=== PATIENT | male | born 1940 | race Caucasian/White ===

== ENCOUNTER 2020-03-19 14:45 | Outpatient (RCR) | payer MEDICARE, OTHER ==
[2019-01-20 15:09] VITALS: BP 129/73
[~2020-03-19 14:45] MED LIST: ASPIRIN E.C. 8181 MG; CALCITRIOL PO; CARDURA2 MG PO; CARVEDILOL12.5 MG PO; CATAPRES0.3 M1 PO; CEFDINIR300 MG PO; DITROPAN 5MG TAB5 MG PO; FLOMAX0.4 MG PO; FUROSEMIDE40 MG; GLIPIZIDE ER10 M1 PO; GOOD NEIGHBOR180 MG PO; HYDRALAZINE HYD50 MG PO; JANUVIA25 MG PO; K-TAB20 MEQ PO; MASON NATURAL1000 IU PO; MEDROL4 M1 PO; MIRALAX17 GM PO; NEIGH PO; NIFEDIPINE ER90 M2 PO; POTASSIUM CH2 MEQ/ML PO; PRILOSEC 20MG20 MG PO; SYNTHROID137 MCG PO; TADALAFIL20 M1 PO; TRAMADOL 50 MG TAB PO
== END 2020-03-19 15:00 | disposition still patient (30) ==
LOC: PT 14:45
DX: M48.02 Spinal stenosis, cervical region (principal); M48.062 Spinal stenosis, lumbar region with neurogenic claudication; M43.16 Spondylolisthesis, lumbar region; M75.101 Unspecified rotator cuff tear or rupture of right shoulder, not specified as traumatic; M51.16 Intervertebral disc disorders with radiculopathy, lumbar region; M43.8X9 Other specified deforming dorsopathies, site unspecified; N39.0 Urinary tract infection, site not specified; A41.9 Sepsis, unspecified organism; R41.82 Altered mental status, unspecified